=== PATIENT | male | born 1995 | race Caucasian/White ===

== ENCOUNTER 2017-02-16 00:59 | Emergency (ER) | payer SELFPAY ==
[~2017-02-16] VITALS: Ht 185.4 cm; Wt 65.8 kg
[2017-02-16 01:07] VITALS: BP 123/66
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
[2017-02-16] MEDS ORDERED: TETANUS AND DIPHTHERIA TOX/PF 0.5 ML DISP.SYRIN. VAX IM ONE (01:30)
[2017-02-16] MEDS ORDERED: LIDOCAINE 1% / SOD BICARB 8.4% 20 ML VIAL. IJ ONE (01:30)
[2017-02-16] MEDS ORDERED: NAPR-683 PO (02:11)
[2017-02-16] MEDS ORDERED: CEPH-264 PO (02:11)
[2017-02-16] MEDS ORDERED: CEPHALEXIN 250 MG CAPSULE. PO ONE (02:30)
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
== END 2017-02-16 02:45 | disposition home or self-care (01) ==
LOC: ER 00:59
DX: S61.412A Laceration without foreign body of left hand, initial encounter (principal); F12.10 Cannabis abuse, uncomplicated; F19.10 Other psychoactive substance abuse, uncomplicated; F10.10 Alcohol abuse, uncomplicated; Y04.0XXA Assault by unarmed brawl or fight, initial encounter; Y93.89 Activity, other specified; Y99.8 Other external cause status; Y92.89 Other specified places as the place of occurrence of the external cause
CPT/HCPCS: 12004; 73120; 90471; 90714; 99283-25; 99284-25